=== PATIENT | male | born 1945 | race Asian ===

== ENCOUNTER 2016-10-11 09:37 | Outpatient (CLI) | payer OTHER | END 2016-10-11 11:00 | disposition home or self-care (01) | LOC: RAD 09:37 → LABW 09:37 | DX: M62.81 Muscle weakness (generalized) (principal); E53.8 Deficiency of other specified B group vitamins; E55.9 Vitamin D deficiency, unspecified; E11.9 Type 2 diabetes mellitus without complications | CPT/HCPCS: 36415; 82306; 82607; 82747; 83036; 84443 ==

== ENCOUNTER 2016-10-31 15:35 | Outpatient (CLI) | payer OTHER | END 2016-10-31 19:24 | disposition home or self-care (01) | LOC: RESP 15:35 | DX: G56.22 Lesion of ulnar nerve, left upper limb (principal) | CPT/HCPCS: 95885; 95910 ==

== ENCOUNTER 2020-11-08 11:22 | Outpatient (CLI) | payer OTHER | END 2020-11-08 22:16 | disposition home or self-care (01) | LOC: US 11:22 | PROVIDERS: ATTEND Internal Medicine Nephrology | DX: I12.9 Hypertensive chronic kidney disease with stage 1 through stage 4 chronic kidney disease, or unspecified chronic kidney disease (principal); N18.31 Chronic kidney disease, stage 3a; E11.22 Type 2 diabetes mellitus with diabetic chronic kidney disease; E78.49 Other hyperlipidemia; Z12.5 Encounter for screening for malignant neoplasm of prostate; F03.90 Unspecified dementia, unspecified severity, without behavioral disturbance, psychotic disturbance, mood disturbance, and anxiety; D12.6 Benign neoplasm of colon, unspecified ==